=== PATIENT | male | born 1980 | race Caucasian/White ===

== ENCOUNTER → 2021-09-01 | Outpatient (CLI) | payer OTHER ==
[~2021-09-01] VITALS: Ht 180.3 cm; Wt 95.3 kg
[~2021-09-01] MED LIST: CELEBREX200 MG PO; CYCLOBENZAPRINE5 MG PO
== END ==
LOC: EROP 12:24
DX: U07.1 COVID-19 (principal); Z23 Encounter for immunization; J98.4 Other disorders of lung; I10 Essential (primary) hypertension
CPT/HCPCS: M0247; Q0247